=== PATIENT | female | born 1955 | race Caucasian/White ===

== ENCOUNTER 2016-09-08 12:13 | Emergency (ER) | payer MEDICAID ==
--- NOTE | 2016-09-08 12:31 | EDM.PDOC ---
ED HPI Trauma - General Chief Complaint: Lower Extremity Injury/Pain Stated Complaint: RT LEG HURTS(FROM KNEE TO HIP) Time Seen by Provider: 09/08/16 12:17 - History of Present Illness INITIAL COMMENTS - FREE TEXT/NARRATIVE: HISTORY AND PHYSICAL: History of present illness: Patient is a 61-year-old white female presents with a concern of right hip and lower extremity pain this has been a chronic intermittent problem patient describes what sounds like peripheral vascular disease and intervention that was done in [place] in the recent past she states the pain does continue to persist and is intermittent and is worse with walking she states prior to the intervention she is not able to walk several blocks she states that this pain still does occur intermittently and is related to exertion she denies fever chills nausea vomiting trauma or other concern Review of systems: As per history of present illness and below otherwise all systems reviewed and negative. Past medical history: As per history of present illness and as reviewed below otherwise noncontributory. Surgical history: As per history of present illness and as reviewed below otherwise noncontributory. Social history: No reported history of drug or alcohol abuse. Family history: As per history of present illness and as reviewed below otherwise noncontributory. Physical exam: HEENT: Atraumatic, normocephalic, pupils reactive, negative for conjunctival pallor or scleral icterus, mucous membranes moist, throat clear, neck supple, nontender, trachea midline. Lungs: Clear to auscultation, breath sounds equal bilaterally, chest nontender. Heart: S1S2, regular, negative for clicks, rubs, or JVD. Abdomen: Soft, nondistended, nontender. Negative for masses or hepatosplenomegaly. Negative for costovertebral tenderness. Pelvis: Stable nontender. Genitourinary: Deferred. Rectal: Deferred. Extremities: Atraumatic, negative for cords or calf pain. Neurovascular unremarkable. Neuro: Awake, alert, oriented. Cranial nerves II through XII unremarkable. Cerebellum unremarkable. Motor and sensory unremarkable throughout. Exam nonfocal. Diagnostics: Venous/arterial Doppler right lower extremity x-ray right hip/pelvis Therapeutics: None Impression: #1 chronic intermittent right hip/lower extremity pain #2 history of claudication/peripheral vascular disease Definitive disposition and diagnosis as appropriate pending reevaluation and review of above. Allergies/ADRs: Allergies No Known Allergies Allergy (Verified 09/08/16 12:28) Home Medications: Ambulatory Orders Aspirin 81 mg PO BRK 09/08/16 [Confirmed 09/08/16] Hydrocodone/Acetaminophen [Vicodin Es 7.5-300 mg Tablet] 1 each PO Q4H PRN 09/08 [Confirmed 09/08/16] Lisinopril 10 mg PO DAILY 09/08/16 [Confirmed 09/08/16] Tamsulosin [Flomax] 0.4 mg PO PCBREAKFAST 09/08/16 [Confirmed 09/08/16] atorvaSTATin [Lipitor] 10 mg PO BEDTIME 09/08/16 [Confirmed 09/08/16] Review of Systems - Review of Systems Review Of Systems: ROS reveals no pertinent complaints other than HPI. Trauma Exam - Physical Exam Exam: See Below (See dictation) Course - Vital Signs Last Recorded V/S: Last Vital Signs Temp 36.3 C 09/08/16 14:05 Pulse 72 09/08/16 14:05 Resp 18 09/08/16 14:05 BP 151/76 H 09/08/16 14:05 Pulse Ox 98 09/08/16 14:05 Departure - Departure Time of Disposition: 14:44 Disposition: Home, Self-Care 01 Condition: good Clinical Impression: Claudication in peripheral vascular disease Referrals: PCP,None [Primary Care Provider] - Forms: ED Department Discharge Additional Instructions: The following information is given to patients seen in the emergency department who are being discharged to home. This information is to outline your options for follow-up care. We provide all patients seen in our emergency department with a follow-up referral. The need for follow-up, as well as the timing and circumstances, are variable depending upon the specifics of your emergency department visit. If you don't have a primary care physician on staff, we will provide you with a referral. We always advise you to contact your personal physician following an emergency department visit to inform them of the circumstance of the visit and for follow-up with them and/or the need for any referrals to a consulting specialist. The emergency department will also refer you to a specialist when appropriate. This referral assures that you have the opportunity for followup care with a specialist. All of these measure are taken in an effort to provide you with optimal care, which includes your followup. Under all circumstances we always encourage you to contact your private physician who remains a resource for coordinating your care. When calling for followup care, please make the office aware that this follow-up is from your recent emergency room visit. If for any reason you are refused follow-up, please contact the [facility] emergency department at and asked to speak to the emergency department charge nurse. [facility] [address] [place] [id number] Followup primary medical doctor and her primary care above is discussed continue current medications quit smoking return as needed as discussed
--- NOTE | 2016-09-08 13:54 | US ---
EXAMINATION: Arterial duplex ultrasound of the right lower extremity HISTORY: Right Leg claudication COMPARISON: None TECHNIQUE: Grayscale, color Doppler, spectral Doppler images obtained FINDINGS: There is normal color and spectral Doppler flow within the right common femoral, femoral, superficial femoral, and popliteal artery. Minimal atheromatous disease is noted without significant narrowing. No significantly elevated velocities. No parvus tardus flow. IMPRESSION: Normal arterial duplex ultrasound of the right lower leg from the common femoral to popl iteal artery.
--- NOTE | 2016-09-08 13:58 | CR ---
EXAMINATION: Pelvis and right hip HISTORY: Pain COMPARISON: None TECHNIQUE: AP pelvis and 2 views of the right hip FINDINGS: There is no acute osseous abnormality, dislocation, or fracture. Bone mineralization and j oint spaces appear normal. The SI joints are symmetric. The iliopectineal lines are intact. Bone min eralization appears normal to mildly osteopenic. Clips project over the inguinal regions bilaterally and lower back. IMPRESSION: No acute osseous abnormality identified.
--- NOTE | 2016-09-08 14:29 | US ---
ULTRASOUND EXAMINATION OF the right lower extremity WITH DOPPLER HISTORY: Pain FINDINGS: Examination of the right leg was performed from the groin to the calf region. All visualized segmen ts including common femoral, proximal greater saphenous, superficial femoral, popliteal and calf vei ns appear patent with good compressibility and augmentation. There is no evidence of deep vein thro mbosis. IMPRESSION: No evidence of a DVT.
[2016-09-08 14:33] VITALS: BP 151/76
== END 2016-09-08 15:25 | disposition home or self-care (01) ==
LOC: MW.ED 12:13
DX: I73.9 Peripheral vascular disease, unspecified (principal); Z79.82 Long term (current) use of aspirin
CPT/HCPCS: 73502-26-RT; 73502-RT; 93926; 93926-26; 93971-26-RT; 93971-RT; 99283; 99284-25